=== PATIENT | male | born 1990 | race Two or more races ===

== ENCOUNTER 2016-11-07 22:02 | Observation (INO) | payer OTHER ==
[2016-11-07] MEDS ORDERED: Sodium Chloride 0.9% 1,000 ML IV STA (22:31)
--- NOTE | 2016-11-07 22:55 | ED PDOC ---
HPI: Psych/Substance Abuse Time Seen by Provider: 11/07/16 22:15 Chief Complaint (Nursing): Alcohol Ingestion Chief Complaint (Provider): alcohol intoxication ED Caveat: Intoxicated History Per: EMS (ambulance run sheet) Additional Complaint(s): EMS found patient lying on ground, vomiting Past Medical History Reviewed: Nursing Documentation, Vital Signs, Unable To Obtain Vital Signs: Last Vital Signs Temp 98 F 11/07/16 22:05 Pulse 75 11/07/16 22:05 Resp 16 11/07/16 22:05 BP 126/69 11/07/16 22:05 Pulse Ox 97 11/07/16 22:05 - Medical History Other PMH: Unknown - Surgical History Other surgeries: Unknown - Family History Family History: States: Unknown Family Hx - Social History Alcohol: Other (Unknown) - Home Medications Home Medications: Ambulatory Orders Medication Instructions Recorded No Known Home Med 11/08/16 - Allergies Allergies/Adverse Reactions: Allergies Allergy/AdvReac Type Severity Reaction Status Date / Time No Known Allergies Allergy Verified 11/07/16 22:05 Review of Systems Review Of Systems: ROS cannot be obtained secondary to pt's inabilty to answer questions. Physical Exam - Reviewed Nursing Documentation Reviewed: Yes Vital Signs Reviewed: Yes - Physical Exam Appears: Positive for: In Acute Distress (retching in ER, obtunded) Head Exam: Positive for: ATRAUMATIC, NORMOCEPHALIC Skin: Positive for: Warm, Dry Eye Exam: Positive for: EOMI (roving eye movements), Conjunctival injection ENT: Positive for: Other (tacky muc membranes with alcohol on breath) Neck: Positive for: Painless ROM, Trachea Midline Cardiovascular/Chest: Positive for: Regular Rate, Rhythm. Negative for: Murmur Respiratory: Positive for: Normal Breath Sounds. Negative for: Respiratory Distress Gastrointestinal/Abdominal: Positive for: Soft. Negative for: Tenderness Back: Positive for: Normal Inspection. Negative for: Vertebral Tenderness Extremity: Positive for: Normal ROM. Negative for: Deformity Lymphatic: Negative for: Adenopathy Neurologic/Psych: Positive for: Gait (unsteady, could not get himself up off the floor ). Negative for: Alert, Oriented, Motor/Sensory Deficits - Laboratory Results Result Diagrams: 11/07/16 23:02 11/07/16 23:00 - ECG O2 Sat by Pulse Oximetry: 97 Disposition - Clinical Impression Clinical Impression: Alcohol abuse with uncomplicated intoxication - Disposition Disposition: Transfer of Care Disposition Time: 23:00 Condition: GOOD Patient Signed Over To: Samson Silva Handoff Comments: Pending ER workup, sobriety, reassessment and final ER disposition
[2016-11-07 23:11] LABS: BASO % 0.3 % (0.0-2.0); EOS # 0.2 K/uL (0.0-0.7); EOS % 2.1 % (0.0-4.0); HEMOGLOBIN 14.2 g/dL (12.0-18.0); LYMPH # 3.2 K/uL (1.0-4.3); LYMPH % 32.8 % (20.0-40.0); MEAN CELL VOLUME 91.4 fl (80.0-94.0); MEAN CORPUSCULAR HEMOGLOBIN 30.2 pg (27.0-31.0); MEAN CORPUSCULAR HGB CONC 33.1 g/dL (33.0-37.0); MONO # 1.1 K/uL (0.0-0.8); MONO % 11.5 % (0.0-10.0); NEUT # 5.2 K/uL (1.8-7.0); NEUT % 53.3 % (50.0-75.0); NRBC % 0.1 % (0.0-0.0); RBC 4.7 Mil/uL (4.40-5.90); RED CELL DISTRIBUTION WIDTH 13.6 % (11.5-14.5); WHITE BLOOD COUNT 9.8 K/uL (4.8-10.8)
[2016-11-07 23:28] LABS: ALB/GLOB RATIO 1.7 (1.0-2.1); ALBUMIN 4.9 g/dL (3.5-5.0); ALT/SGPT 44 U/L (21-72); AST/SGOT 40 U/L (17-59); BLOOD UREA NITROGEN 16 mg/dl (9-20); GFR AFRICAN-AMERICAN > 60; GFR NON-AFRICAN AMERICAN > 60
--- NOTE | 2016-11-08 00:38 | ED PDOC ---
- Laboratory Results Result Diagrams: 11/07/16 23:02 11/07/16 23:00 - ECG O2 Sat by Pulse Oximetry: 97 - Progress ED Course And Treament: Assumed care from Dr Wayne. Pending clinical sobriety. Disposition Counseled Patient/Family Regarding: Studies Performed, Diagnosis, Need For Followup - Clinical Impression Clinical Impression: Alcohol abuse with uncomplicated intoxication - POA Present On Arrival: None - Disposition Disposition: Transfer of Care Disposition Time: 07:00 Condition: FAIR Patient Signed Over To: Christoph Rodríguez Handoff Comments: pending clinical sobriety
--- NOTE | 2016-11-08 00:38 | CT ---
EXAM: CT Head Without Intravenous Contrast CLINICAL HISTORY: 25 years old, male; Signs and symptoms; Other: ETOH; Additional info: Intoxicated found on ground vomiting TECHNIQUE: Axial computed tomography images of the head/brain without intravenous contrast. This CT exam was performed using one or more of the following dose reduction techniques: automated exposure control, adjustment of the mA and/or kV according to patient size, and/or use of iterative reconstruction technique. Coronal and sagittal reformatted images were created and reviewed. COMPARISON: No relevant prior studies available. FINDINGS: Brain: No acute intracranial hemorrhage. No significant white matter disease. No edema. Ventricles: No significant ventriculomegaly. Bones: No acute displaced fracture. Sinuses: Unremarkable as visualized. No acute sinusitis. Mastoid air cells: Unremarkable as visualized. No mastoid effusion. IMPRESSION: No acute intracranial hemorrhage, or suspicious mass effect.
[2016-11-08 01:22] LABS: BARBITURATES, UR NEGATIVE (NEGATIVE); BENZODIAZEPINES, UR NEGATIVE (NEGATIVE); OPIATES, UR NEGATIVE (NEGATIVE); PHENCYCLIDINE, UR NEGATIVE (NEGATIVE)
[2016-11-08 05:04] VITALS: TEMP 98.7
[2016-11-08 07:40] VITALS: BP 107/80; PULSE 75; RESP 16
--- NOTE | 2016-11-08 08:34 | ED PDOC ---
- Laboratory Results Result Diagrams: 11/07/16 23:02 11/07/16 23:00 - ECG O2 Sat by Pulse Oximetry: 96 Pulse Ox Interpretation: Normal - Progress ED Course And Treament: pt is ambulatory without complaint. no signs of clinical intoxication. advise to abstain from etoh. pt leaves ambulatory and in good spirits. Re-evaluation Time: 08:33 Condition: Improved Disposition Counseled Patient/Family Regarding: Studies Performed, Diagnosis, Need For Followup - Clinical Impression Clinical Impression: Alcohol abuse with uncomplicated intoxication - POA Present On Arrival: None - Disposition Disposition: Routine/Home Disposition Time: 08:34 Condition: GOOD
[2016-11-08 15:49] VITALS: O2SAT 97
== END 2016-11-08 08:36 | disposition home or self-care (01) ==
LOC: H.ER 22:02 → H.EROBSV 22:53
PROVIDERS: ADMIT Emergency Medicine; ATTEND Emergency Medicine
DX: F10.120 Alcohol abuse with intoxication, uncomplicated (principal); Y90.6 Blood alcohol level of 120-199 mg/100 ml